=== PATIENT | male | born 1970 | race Caucasian/White ===

== ENCOUNTER 2019-09-21 18:39 | Emergency (ER) | payer SELFPAY ==
--- NOTE | 2019-09-21 19:06 | RAD ---
RADIOGRAPH LEFT HAND [id number]: DATE: 09/21/2019 HISTORY: 49-year-old male with left fifth digit pain and discoloration FINDINGS: There is no dislocation. No fracture is identified. No periostitis or destructive osseous lesion of f ifth digit identified. No soft tissue calcifications or subcutaneous emphysema. IMPRESSION: No pathology of fifth digit identified.
== END 2019-09-21 21:24 | disposition home or self-care (01) ==
LOC: ERS 18:39
DX: I73.00 Raynaud's syndrome without gangrene (principal); I73.9 Peripheral vascular disease, unspecified